=== PATIENT | female | born 1965 | race Caucasian/White ===

== ENCOUNTER 2016-10-10 14:07 | Day surgery (SDC) | payer BC ==
[~2016-10-10] VITALS: Ht 160 cm; Wt 95.2 kg
[2016-10-10 14:33] VITALS: Ht 160 cm; Wt 95.2 kg
[2016-10-10] MEDS ORDERED: SYMBICORT (14:38)
[2016-10-10] MEDS ORDERED: MEPERIDINE 50 MG INJ ONE (15:37)
[2016-10-10] MEDS ORDERED: MIDAZOLAM 1 MG/ML 2 ML INJ ONE ×2 (15:37→15:38)
[2016-10-10] MEDS ORDERED: FENTAnyl 50 MCG/ML VIAL ONE (15:37)
[2016-10-10 15:58] VITALS: BP 99/52; PULSE 68; RESP 18
--- NOTE | 2016-10-10 21:22 | GILP ---
DATE OF PROCEDURE: PREOPERATIVE DIAGNOSES: 1. Family history of a sister having breast carcinoma. 2. Mother had colon polyps. 3. The patient is brought for colonoscopy screening. POSTOPERATIVE DIAGNOSES: 1. Diverticulosis throughout the colon, scattered. 2. Internal hemorrhoids, grade I, with hypertrophic anal papillae. 3. Grade I external hemorrhoids. 4. Otherwise normal study. DESCRIPTION OF PROCEDURE: The patient was put in left lateral decubitus. After obtaining informed consent, total of 3 mg IV Versed and 50 mcg of fentanyl and 25 mg IV Demerol given. Rectal exam don e. External hemorrhoids noted, grade I. Advanced an Olympus video colonoscope all the way to cecum . Appendiceal opening and ileocecal valve were identified. Cecum, ascending colon, transverse colo n showed few scattered diverticula. In the left colon, also diverticulosis noted, but very few, mil d, not too large. Rectum, rectosigmoid including retroflexion showed essentially normal mucosa, exc ept anal papillae. One of them was hypertrophic, and internal hemorrhoids, grade I. Upon removal o f scope, patient had no complication. FINAL IMPRESSION: 1. Diverticulosis scattered throughout the colon. 2. Grade I external and internal hemorrhoids. 3. Hypertrophic anal papillae. PLAN: Advised her to go on high fiber diet, follow up with Dr. Tanmay Arriaga, and repeat colonoscop y in 10 years. Dictated By: RUBIO HOUSE/GEORGE Conf#: [id number] DID#: [id number] CC: RUBIO RAMOS M.D.; Tanmay Arriaga;*EndCC*
== END 2016-10-10 16:12 | disposition home or self-care (01) ==
LOC: GIL 14:07
PROVIDERS: ATTEND Internal Medicine
DX: Z12.11 Encounter for screening for malignant neoplasm of colon (principal); K64.8 Other hemorrhoids; K57.90 Diverticulosis of intestine, part unspecified, without perforation or abscess without bleeding; K64.0 First degree hemorrhoids; Z80.3 Family history of malignant neoplasm of breast; Z88.0 Allergy status to penicillin
CPT/HCPCS: 45378; J2175; J2250; J3010; Z7610